=== PATIENT | male | born 1965 | race Caucasian/White ===

== ENCOUNTER 2017-03-12 06:20 | Day surgery (SDC) | payer OTHER ==
[~2017-03-12] VITALS: Ht 165.1 cm; Wt 80.5 kg
[~2017-03-12 06:20] MED LIST: LOSA1TAB19 PO
[2017-03-12 07:19] VITALS: Ht 165.1 cm; Wt 80.5 kg
[2017-03-12] MEDS ORDERED: METF-480 PO (07:37)
[2017-03-12] MEDS ORDERED: ATOR40TA68 PO (07:37)
[2017-03-12] MEDS ORDERED: ASPI81TA3 PO (07:37)
[2017-03-12 07:55] VITALS: BP 212/124; PULSE 77; RESP 21
[2017-03-12] MEDS ORDERED: PROPOFOL 0 ML ONE (07:56)
[2017-03-12] MEDS ORDERED: LIDOCAINE 2% (SDV) 5 ML INJ ONE (07:56)
[2017-03-12] MEDS ORDERED: MIDAZOLAM 1 MG/ML 2 ML INJ ONE (07:56)
[2017-03-12] MEDS ORDERED: METOPROLOL 5 MG INJ ONE (07:59)
--- NOTE | 2017-03-12 08:51 | OPPN ---
Date/Time of Note Date/Time of Note DATE: 03/12/17 TIME: 08:41 Event Note 52 yo M with h/o HTN, NIDDM II presented for screening colonoscopy with h/o rectal bleeding. On interview for H&P, pt stated he drinks 12 pack/weekends, smokes 1/2 ppd, and used cocaine last Saturday. EKG was ordered and reviewed, showing new Q waves LAFB, LAE, LVH, TWI V4-6 that were not present on EKG compared from 01/2016. 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 Pt denies any CP, blurry vision, dizziness, numbness, weakness, n/v. However given presentation and findings and possibility of silent NH with DM, BP unresponsive to metoprolol, with sustained SBP> 200 and DBP> 120s, HR remained in 70s, discussed findings with pt and his daughter, recommended for pt to go to ED for further treatment and workup for HTN emergency. Pt stated he did not want to go to ED and did not have any money. Given pt lives with high baseline BP, did not feel it was safe to continue giving IV medications to drop his BP without further monitoring and care, recommended to take home BP med. Discussed concerns and findings with Dr. Amado. Case cancelled. DANNY WEN MD Mar 12, 2017 08:51
--- NOTE | 2017-03-14 09:19 | RADRPT ---
Vent Rate: 75 bpm RR Interval: 0 msec WA Interval: 156 msec QRS Duration: 96 msec QT Interval: 454 msec QTC Interval: 506 msec P-R-T Iaeger: 58 - -57 - 121 degrees Normal sinus rhythm Possible Left atrial enlargement Left anterior fascicular block Left ventricular hypertrophy with repolarization abnormality Cannot rule out Septal infarct , age undetermined Prolonged QT Abnormal ECG Electronically Signed By: David Mott [id number]
== END 2017-03-12 14:14 | disposition home or self-care (01) ==
LOC: GIL 06:20
PROVIDERS: ATTEND Internal Medicine Gastroenterology
DX: Z12.11 Encounter for screening for malignant neoplasm of colon (principal); E11.9 Type 2 diabetes mellitus without complications; I25.2 Old myocardial infarction; I16.1 Hypertensive emergency; I10 Essential (primary) hypertension
CPT/HCPCS: 82962; 93005; J2250

== ENCOUNTER 2017-05-11 12:23 | Emergency (ER) | payer OTHER ==
[~2017-05-11] VITALS: Ht 172.7 cm; Wt 86.8 kg
[~2017-05-11 12:23] MED LIST changes: +ASPI81TA3 PO; +ATOR40TA68 PO; +METF-480 PO
[2017-05-11 12:25] VITALS: Ht 172.7 cm; Wt 86.8 kg
[2017-05-11] MEDS ORDERED: LIDOCAINE 1%/EPI 30 ML INJ INJ STA (12:39)
[2017-05-11] MEDS ORDERED: SULF1TAB31 PO (13:38)
[2017-05-11] MEDS ORDERED: CEPH-443 PO (13:38)
[2017-05-11] MEDS ORDERED: HYDR-906 PO (13:46)
--- NOTE | 2017-05-11 13:46 | ERD ---
ER Documentation Chief Complaint Chief Complaint abscess (back) x 1 month HPI Otherwise healthy 52-year-old male presents with a chief complaint of abscess on his back that has been growing for the past month. Denies fever, chills, nausea, vomiting, pain beyond the site of the abscess, or drainage. Has not taken any medications to relieve the symptoms. Has had similar abscesses in the past around the same area. Last abscess was more than 1 year ago. No recent antibiotic use or hospital stay. Vaccination status up-to-date. Patient has no other complaints and describes no other associated manifestations. Nursing notes have been reviewed and are consistent with history given. ROS All systems reviewed and are negative except as per history of present illness. Medications Home Meds Active Scripts Cephalexin* (Keflex*) 500 Mg Capsule, 500 MG PO QID for 5 Days, CAP Prov:NAYELY RIDLEY PA-C 05/11/17 Sulfamethoxazole/Trimethoprim* (Bactrim Ds* Tablet) 1 Each Tablet, 1 TAB PO BID for 7 Days, #14 TAB Prov:NAYELY RIDLEY PA-C 05/11/17 Reported Medications Metformin* (Glucophage*) 850 Mg Tablet, 850 MG PO WITH BREAKFAST, #30 TAB 03/12/17 Atorvastatin* (Atorvastatin*) 40 Mg Tablet, 10 MG PO QHS, #30 TAB 03/12/17 Aspirin* (Aspirin* Chew) 81 Mg Tab.chew, 81 MG PO DAILY, TAB.CHEW 03/12/17 Losartan-Hydrochlorothiazide (Losartan-HCTZ) 50-12.5 Mg Tab, 1 TAB PO DAILY, TAB 02/08/16 Allergies Allergies: Coded Allergies: No Known Allergy (Unverified , 03/12/17) PMhx/Soc History of Surgery: Yes (elbow sx.) Anesthesia Reaction: No Hx Neurological Disorder: Yes (STROKE X 2 PER FAMILY MEMBER, PT. DENIED) Hx Respiratory Disorders: No Hx Cardiac Disorders: No Hx Psychiatric Problems: No Hx Miscellaneous Medical Probl: Yes (HTN) Hx Alcohol Use: Yes Hx Substance Use: No Hx Tobacco Use: Yes Smoking Status: Light tobacco smoker Physical Exam Vitals Vital Signs Date Time Temp Pulse Resp B/P Pulse Ox O2 Delivery O2 Flow Rate FiO2 05/11/17 12:25 99.1 89 18 193/120 97 Physical Exam Const: Healthy-appearing. Well-nourished. Well-developed. No acute distress. Skin: 15 x 10 cm abscess on the upper right aspect of back. Moderately tender to palpation. No drainage. Mild induration. Mild erythema. No warmth. Good turgor. Ext: No cyanosis or edema noted. Head: Normocephalic. As noted in skin exam. Eyes: Non-injected; No scleral erythema, or discharge. EOMI and JIA bilaterally. Ears: Normal External Ears, EACs clear, TM normal bilaterally without erythema. Nose: Normal nose without discharge, septal deviation, or sinus tenderness. Oral: No oral edema visualized. Mucous membranes moist and pink. Neck: No cervical lymphadenopathy, or masses. Trachea midline. Supple ~ No meningismus. Pulm: Good air movement in upper and lower respiratory tracts. No dyspnea, stridor, tripoding or drooling. Clear to auscultation bilaterally. Cardio: Regular rate and rhythm. No cyanosis. Capillary refill less than 2 seconds. Abd: Soft, non tender, non distended. No guarding. Normal bowel sounds. MS: Normal motor strength, normal tone with gross examination. Back: No midline or flank tenderness. Neur: Neurovascularly intact bilaterally. Awake, alert and oriented x3. Results 24 hrs Current Medications Medications (Trade) Dose Ordered Sig/Hailey Route PRN Reason Start Time Stop Time Status Last Admin Dose Admin Lidocaine/ Epinephrine (Xylocaine 1%/ Epi (Pf)) 30 ml ONCE STAT INJ 05/11/17 12:39 05/11/17 12:42 DC 05/11/17 12:48 Trimethoprim/ Sulfamethoxazole (Bactrim (Ds)) 1 tab ONCE ONCE PO 05/11/17 14:00 05/11/17 14:01 Cephalexin (Keflex) 500 mg ONCE ONCE PO 05/11/17 14:00 05/11/17 14:01 Acetaminophen/ Hydrocodone Bitart (Iaeger (5/325)) 1 tab ONCE ONCE PO 05/11/17 14:00 05/11/17 14:01 Procedures/MDM Otherwise healthy 52-year-old male presented with a chief complaint of abscess. 15 x 10 cm abscess on the upper right portion of the back. Abscess was anesthetized with 7 mL of lidocaine with epi. 2 cm incision made with an 11 blade. 25-35 mL of purulent material expressed. 0.5 packing was inserted. Neurovascularly intact after procedure. No complications. Patient was given first dose of antibiotics in the emergency department. Patient was given prescription for Keflex and Bactrim. Patient was also given prescription for Iaeger. My attending is assessable in himself. Has agreed with the assessment and plan. I have spoke with the patient regarding their condition and future management including the necessity for 2 day follow-up. They have verbally responded that they understand their status and treatment plan. The patients vitals are stable, and their current condition is appropriate for discharge. The patient will be given discharge instructions with return precautions. Departure Diagnosis: Primary Impression: Complicated abscess Condition: Stable Patient Instructions: Abscess Drainage Referrals: PIETER ROQUE MD (PCP) Additional Instructions: Follow up with your PCP within the next 2 days for a wound check and a possible referral to a specialist. Return the the emergency department immediately if symptoms worsen or change. If you have any questions regarding medications, ask your pharmacist or us before you leave. If any adverse reactions occur while taking your medications, discontinue the treatment and return to the emergency department immediately. Take your medications as directed, and complete the entire course of treatment. NAYELY RIDLEY PA-C May 11, 2017 13:45
[2017-05-11] MEDS ORDERED: TRIMETHOPRIM/SULFAMETHOX (DS) TAB PO ONE (14:00)
[2017-05-11] MEDS ORDERED: CEPHALEXIN 500 MG CAP PO ONE (14:00)
[2017-05-11] MEDS ORDERED: HYDROCODONE/APAP (5/325) TAB PO ONE (14:00)
== END 2017-05-11 14:11 | disposition home or self-care (01) ==
LOC: FTE 12:23
DX: L02.212 Cutaneous abscess of back [any part, except buttock and flank] (principal); I10 Essential (primary) hypertension; F17.210 Nicotine dependence, cigarettes, uncomplicated; Z79.84 Long term (current) use of oral hypoglycemic drugs; Z79.82 Long term (current) use of aspirin

== ENCOUNTER 2017-05-13 14:30 | Emergency (ER) | payer OTHER ==
[~2017-05-13] VITALS: Wt 85.1 kg
[~2017-05-13 14:30] MED LIST changes: +CEPH-443 PO; +HYDR-906 PO; +SULF1TAB31 PO
--- NOTE | 2017-05-13 18:04 | ERD ---
ER Documentation Chief Complaint Chief Complaint PT HERE FOR RECHECK ON ABCESS I&D 2 DAYS AGO HPI This is a 52-year-old male that presents the ER for recheck of his abscess which she had incised and drained 2 days ago. He had the abscess for over a month, and decided to come in because he was getting too painful and swollen. Patient states that he feels significantly better after incision and drainage she is taking his antibiotics he does not have any fevers or chills. ROS 12 point review of systems was done, all negative except per HPI. Medications Home Meds Active Scripts Hydrocodone/Acetaminophen ([place] 5-325 Tablet) 1 Each Tablet, 1 TAB PO Q6H Y for PAIN, #7 TAB Prov:NAYELY RIDLEY PA-C 05/11/17 Cephalexin* (Keflex*) 500 Mg Capsule, 500 MG PO QID for 5 Days, CAP Prov:NAYELY RIDLEY PA-C 05/11/17 Sulfamethoxazole/Trimethoprim* (Bactrim Ds* Tablet) 1 Each Tablet, 1 TAB PO BID for 7 Days, #14 TAB Prov:NAYELY RIDLEY PA-C 05/11/17 Reported Medications Metformin* (Glucophage*) 850 Mg Tablet, 850 MG PO WITH BREAKFAST, #30 TAB 03/12/17 Atorvastatin* (Atorvastatin*) 40 Mg Tablet, 10 MG PO QHS, #30 TAB 03/12/17 Aspirin* (Aspirin* Chew) 81 Mg Tab.chew, 81 MG PO DAILY, TAB.CHEW 03/12/17 Losartan-Hydrochlorothiazide (Losartan-HCTZ) 50-12.5 Mg Tab, 1 TAB PO DAILY, TAB 02/08/16 Allergies Allergies: Coded Allergies: No Known Allergy (Unverified , 03/12/17) PMhx/Soc History of Surgery: Yes (elbow sx.) Anesthesia Reaction: No Hx Neurological Disorder: Yes (STROKE X 2 PER FAMILY MEMBER, PT. DENIED) Hx Respiratory Disorders: No Hx Cardiac Disorders: No Hx Psychiatric Problems: No Hx Miscellaneous Medical Probl: Yes (HTN) Hx Alcohol Use: Yes Hx Substance Use: No Hx Tobacco Use: Yes Smoking Status: Never smoker Physical Exam Vitals Vital Signs Date Time Temp Pulse Resp B/P Pulse Ox O2 Delivery O2 Flow Rate FiO2 05/13/17 14:35 98.6 78 18 194/98 96 Physical Exam GENERAL: The patient is well developed and appropriate for usual state of health , in no apparent distress. HEENT: Atraumatic CHEST: Clear to auscultation bilaterally. There are no rales, wheezes or rhonchi. HEART: Regular rate and rhythm. No murmurs, clicks, rubs or gallops. NEURO: Alert and oriented. SKIN: There is a large healing abscess to the mid back, with packing in it. Procedures/MDM abscess was repacked, as there was still some discharge. There is no surrounding erythema or warmth to the touch. Wound shows no evidence of infection, foreign body, neurologic injury, vascular injury, open joint or tendon laceration. Patient appropriate for outpatient follow up. he should return to ER in 48 hours for recheck/. Departure Diagnosis: Primary Impression: Encounter for wound re-check Condition: Stable Patient Instructions: Wound Packing Referrals: PIETER ROQUE MD (PCP) Additional Instructions: Regrese a estas instalaciones dentro de [facility] para un examen de seguimiento.Regrese antes si kohler condicin se empeora. SATHYA ATWOOD May 13, 2017 18:04
== END 2017-05-13 18:08 | disposition home or self-care (01) ==
LOC: FTE 14:30
DX: Z48.01 Encounter for change or removal of surgical wound dressing (principal); I10 Essential (primary) hypertension; Z87.891 Personal history of nicotine dependence
CPT/HCPCS: 99281

== ENCOUNTER 2017-11-17 19:04 | Inpatient (IN) | END 2017-11-24 13:24 | disposition home or self-care (01) | DRG 304 ==

== ENCOUNTER 2017-12-31 13:18 | Emergency (ER) | END 2017-12-31 16:55 | disposition home or self-care (01) ==